=== PATIENT | female | born 1995 | race Caucasian/White ===

== ENCOUNTER 2016-06-01 18:12 | Emergency (ER) | payer OTHER ==
[2016-06-01 18:29] VITALS: RESP 18
[2016-06-01] MEDS ORDERED: PROPARACAINE 0.5% OPHTH DROPS 15 ML BTL LEFT EYE STA (18:48)
--- NOTE | 2016-06-01 18:52 | ED ---
General Adult HPI - General Chief complaint: ENT Stated complaint: EYE SWELLING, NASAL, FEMALE Time Seen by Provider: 06/01/16 18:35 Source: patient, RN notes reviewed Mode of arrival: ambulatory Limitations: no limitations - History of Present Illness Initial comments: This is a 20-year-old female who presents with sinus congestion and left eye redness that started today. Patient states she's had congestion for 2-3 days but woke up this morning with a red and watery eye. Patient states she has been rubbing her left eye as it has felt irritated especially with closing the eye. Patient denies any foreign body. Patient states she has had an intermittent dry cough for the last 2 days. Patient states she's had a fever that started today that was around 99.8F. patient did not take any Tylenol or Motrin for this fever. Patient denies any blurred vision, photophobia, or double vision. Patient denies any recent shortness breath, chest pain, abdominal pain, nausea/vomiting/diarrhea, back pain, numbness, tingling, hematuria, headache, or visual changes, or any other complaints. - Related Data Previous Rx's Medication Instructions Recorded Erythromycin Ophth Oint [Romycin 1 applic LEFT EYE QID 5 Days 06/01/16 Ophth Oint] Allergies Allergy/AdvReac Type Severity Reaction Status Date / Time No Known Allergies Allergy Verified 06/01/16 18:29 Review of Systems ROS Statement: Those systems with pertinent positive or pertinent negative responses have been documented in the HPI. ROS Other: All systems not noted in ROS Statement are negative. Past Medical History Past Medical History: No Reported History History of Any Multi-Drug Resistant Organisms: None Reported Past Surgical History: Adenoidectomy, Tonsillectomy Past Psychological History: Anxiety, Depression Smoking Status: Never smoker Past Alcohol Use History: Occasional Past Drug Use History: None Reported General Exam - General Exam Comments Initial Comments: General: The patient is awake and alert, in no distress, and does not appear acutely ill. Eye: Left eye is mildly erythematous with watery drainage. No swelling. Pupils are equal, round and reactive to light, extra-ocular movements are intact. No pain with extraocular movements. No nystagmus. There is normal conjunctiva bilaterally. No signs of icterus. Ears: TMs pink and pearly with intact cone of light bilaterally. Normal external ear canals Nose: Nasal turbinates pink and moist Mouth and throat: There are moist mucous membranes and no oral lesions. Neck: The neck is supple, there is no tenderness or JVD. Cardiovascular: There is a regular rate and rhythm. No murmur, rub or gallop is appreciated. Respiratory: Lungs are clear to auscultation, respirations are non-labored, breath sounds are equal. No wheezes, stridor, rales, or rhonchi. Musculoskeletal: Normal ROM, no tenderness. Strength 5/5. Sensation intact. Radial pulses equal bilaterally 2+. Neurological: A&O x 3. CN II-XII intact, There are no obvious motor or sensory deficits. Coordination appears grossly intact. Speech is normal. Skin: Skin is warm and dry and no rashes or lesions are noted. Psychiatric: Cooperative, appropriate mood & affect, normal judgment. Limitations: no limitations Course Vital Signs 06/01/16 06/01/16 18:25 20:33 Temperature 99.1 F 979 F H Pulse Rate 77 75 Respiratory 18 18 Rate Blood Pressure 109/55 113/67 O2 Sat by Pulse 99 100 Oximetry Procedures - Procedures Initial comment: Proparacaine was applied to the left eye with symptom relief. Fluorescein stain was applied and viewed under the Pryor lamp. Small amount of uptake was noted at the 5 o'clock position of the cornea. No foreign body is noted. No hypopyon or hyphema is noted. No foreign body noted with eyelid eversion. Patient tolerated the procedure well. Medical Decision Making - Medical Decision Making This is a 20-year-old female with left eye redness. On physical exam patient is afebrile EC. Left eye is mildly erythematous with watery drainage. No swelling. Pupils are equal, round and reactive to light, extra-ocular movements are intact. No pain with extraocular movements. No nystagmus. There is normal conjunctiva bilaterally. No signs of icterus. Influenza was checked and came back negative. Patient's visual acuity is within normal limits. Proparacaine was applied to the left eye with symptom relief. Fluorescein stain was applied and viewed under the Pryor lamp. Small amount of uptake was noted at the 5 o'clock position of the cornea. No foreign body is noted. No foreign body noted with eyelid eversion. Patient tolerated the procedure well. I discussed that patient will be put on erythromycin ointment for corneal abrasion. I discussed that if symptoms are not 100% improved in the next 48 hours that she needs to follow-up with ophthalmology. I discussed Tylenol and Motrin as needed for pain. I discussed return parameters.Discussed that patient should follow up with PCP in one to 2 days or return to the [facility] for any worsening symptoms or for any further concerns. Patient was receptive to this plan and patient will be discharged home. I discussed this case with attending physician Dr. Morrow who agrees the plan as stated above. - Lab Data Lab Results 06/01/16 Range/Units 19:30 Influenza Type A RNA Not Detected (Not Detectd) Influenza Type B (PCR) Not Detected (Not Detectd) Disposition Clinical Impression: Corneal abrasion Disposition: HOME SELF-CARE Condition: Good Instructions: Corneal Abrasion (ED) Additional Instructions: Please use erythromycin ointment as prescribed. Please follow-up with ophthalmology if her symptoms have not completely improved in 48 hours. Please use Tylenol and Motrin for pain. Please follow-up with family doctor in the next 2 days of symptoms have not improved. Please return to emergency room if the symptoms increase or worsen or for any other concerns. Prescriptions: Erythromycin Ophth Oint [Romycin Ophth Oint] 1 applic LEFT EYE QID 5 Days Referrals: Ree Grossman DO [Primary Care Provider] - 1-2 days Pal Guevara MD [STAFF PHYSICIAN] - 1-2 days Time of Disposition: 20:17
[2016-06-01] MEDS ORDERED: ERYTHROMYCIN 5 MG/GM OPHTH OINT 3.5 GM TUBE LEFT EYE STA (19:54)
[2016-06-01 20:34] VITALS: BP 113/67; PULSE 75; TEMP 979
== END 2016-06-01 20:34 | disposition home or self-care (01) ==
LOC: EC 18:12
DX: S05.02XA Injury of conjunctiva and corneal abrasion without foreign body, left eye, initial encounter (principal); R09.81 Nasal congestion; X58.XXXA Exposure to other specified factors, initial encounter
CPT/HCPCS: 87502; 99283

== ENCOUNTER → 2018-07-11 | Outpatient (CLI) | payer OTHER ==
[~2018-07-11] MED LIST: RABIES VACCINE (PCEC) 2.5 UNIT KIT IM ONE
== END ==
LOC: PEDOP 16:04
PROVIDERS: ATTEND Physician Assistant Medical
DX: T14.8XXA Other injury of unspecified body region, initial encounter (principal)
CPT/HCPCS: 90471; 90675